=== PATIENT | female | born 1990 | race Caucasian/White ===

== ENCOUNTER 2017-04-23 23:24 | Emergency (ER) | payer MEDICAID ==
[~2017-04-23] VITALS: Ht 167.6 cm; Wt 84.0 kg
[~2017-04-23 23:24] MED LIST: DIAZ5TAB PO
[2017-04-23] MEDS ORDERED: amoxicillin 250mg capsule PO ONE (23:40)
[2017-04-23] MEDS ORDERED: AMOX500C2 PO (23:41)
[2017-04-23 23:49] VITALS: BP 137/98
== END 2017-04-23 23:50 | disposition home or self-care (01) ==
LOC: ER 23:25
DX: K04.7 Periapical abscess without sinus (principal); G89.29 Other chronic pain; Z88.8 Allergy status to other drugs, medicaments and biological substances; Z98.51 Tubal ligation status; Z86.14 Personal history of Methicillin resistant Staphylococcus aureus infection
CPT/HCPCS: 99283